=== PATIENT | male | born 1985 | race Caucasian/White ===

== ENCOUNTER 2016-11-15 11:16 | Emergency (ER) | payer OTHER ==
[~2016-11-15] VITALS: Ht 170.2 cm; Wt 75.0 kg
[2016-11-15 11:17] VITALS: BP 132/84; PULSE 81; RESP 16; O2SAT 99
[2016-11-15] MEDS ORDERED: ESCI20TA PO (11:21)
--- NOTE | 2016-11-15 11:25 | ED.REPORT ---
HPI-Extremity Problem Upper Date of Service Nov 15, 2016 ED Provider: Shakir Clements MD Pt is a 31 year old male with a hx of who presents to the ED s/p a wooden stake punctured his right 5th finger while at work. He reports he was walking over a pile of kiln sticks when he tripped, braced his fall with his hand, and obtained the puncture wound. Associated symptoms include mild decreased sensation in his hand. He denies fevers, chills, vomiting, lightheadedness, tingling, or any other symptoms. He does not know when his last tetanus shot was. Nursing Notes Stated Complaint: HUGE SLIVER IN RIGHT PINKY Chief Complaint: Extremity Trauma Nursing Notes Reviewed: Yes Allergies: Coded Allergies: No Known Allergies (Unverified , 11/15/16) Scheduled Amoxicillin/Clav K 875-125 mg (Augmentin 875-125 mg) 1 Each Tablet 1 TABLET PO BID Escitalopram Oxalate (Lexapro) 20 Mg Tablet 30 MG PO DAILY Scheduled PRN Hydrocodone-Acetaminophen 5-325 mg (Hydrocodone-Acetaminophen 5-325 mg) 1 Each Tablet 1 TABLET PO Q4H PRN PRN For Pain General Time Seen by MD: 11:24 Chief Complaint Finger injury right 5 Hx Obtained From: Patient Arrived By: Walk-in Onset Occurred: Just prior to arrival Symptom Duration: Since onset Caused by: Fall on ground Context: Occurred at: Workplace Location: : Finger right 5 Quality: Painful Severity: Current: Moderate Severity: Maximum: Moderate Pertinent Negative: Pt denies other symptoms Exacerbated by: Range of motion Immunizations: Unknown Past Medical History Past Medical History None reported Past Surgical History None reported Smoking History Unknown if Ever Smoker Ambulatory Status Independent Review of Systems Review of Systems Note: -tingling Constitutional: Denies: Chills, Fever Musculoskeletal: Reports: Extremity pain Neurologic: Reports: Numbness, Denies: Lightheaded, Syncope Complete sys rev & neg: except as marked. GI: Denies: Vomiting Physical Exam Initial Vital Signs Vital Signs (First) Date Time Temp Pulse Resp B/P Pulse Ox O2 Delivery O2 Flow Rate FiO2 11/15/16 11:17 36.8 81 16 132/84 99 Room Air Initial VS: Reviewed, Vital signs normal Head / Eyes: Atraumatic, Normocephalic Neck: Supple, Full range of motion Respiratory: Breath sounds normal, Clear to auscultation, No respiratory distress Cardiovascular: Regular rate & rhythm, Heart sounds normal, Intact distal pulses Skin: Warm, Dry Neurologic: Alert, Oriented, Nonfocal General/Constitutional: Awake, Alert, No acute distress Wrist / Hand: Neurologic intact, Vascular intact large splinter about 3mm in width, 2cm long entering lateral aspect of R pinky finger, traversing through subcutaneous tissue and exiting about the palmar aspect just distal to the PIP joint. sensation intact to distal aspect of R 5th finger good cap refill Interpretation & Diagnostics X-Ray Interpretation Xray Interpretation: IMPRESSION: No fracture. No osseous lesion. If symptoms and/or clinical suspicion for pathology persists, further assessment with repeat radiographs or advanced imaging (e.g. CT, MRI or bone scan) may be helpful for further assessment. Dictated by: Alethea Mcghee MD, PhD on 11/15/2016 at 11:57 Approved by: Alethea Mcghee MD, PhD on 11/15/2016 at 11:58 X-Ray Ordered: Hand right Interpretation / Wet Read by: Interpret - Radiologist Procedures Procedure Notes: Foreign body removal right fifth digit. Large splinter removed from lateral aspect of the middle phalanx. Digital block performed using 4 mL 1% lidocaine delivery with a 27-gauge needle. Good anesthesia is obtained in the hand is thoroughly cleansed with chlorhexidine and normal saline. Wood fragment is removed easily with straight mosquito hemostat with no indication of retained splinters. Penetrating wounds irrigated from both sides using an 18-gauge cannula and 50 mL normal saline. Minimal bleeding. Patient tolerated the procedure well. Dressed and back ointment and gauze. Re-Eval/Medical Decision Med Decision/Clinical Course In summary, the patient is a generally healthy 31-year-old male who presents with a large wooden sliver transversing the soft tissue of his left fifth finger. He is neurovascularly intact distal to the injury. He is not sure if he is up-to-date on his tetanus. Emergency Department the patient is afebrile, hemodynamically stable and in no apparent distress with examination as above. The patient was treated with 10 mg of oral oxycodone for pain and his tetanus status is updated. A digital block was performed as documented above and the sliver was removed. The wound was copiously irrigated and no remaining foreign bodies were detected. He had full flexion and extension of his finger without any evidence of neurovascular or ligamentous injury. Plain films prior to foreign body removal were obtained as below: Soft tissues: No suspicious soft tissue calcifications. Subtle slightly radiodense foreign body projects over the fifth PIP joint. No fracture. No osseous lesion. If symptoms and/or clinical suspicion for pathology persists, further assessment with repeat radiographs or advanced imaging (e.g. CT, MRI or bone scan) may be helpful for further assessment. The patient was placed on a course of Augmentin and will follow up closely with his primary care physician. He is to return immediately for any redness, swelling, fever or signs of infection. Prior to discharge follow-up and return precautions were reviewed in detail with the patient who verbalized understanding and agreement with the plan. The patient was discharged in stable condition. Re-Evaluation/Progress : Time of Eval: 12:20 Re-Evaluation/Progress Note: Discussed plan for wound care and f/u. Discussed plan for discharge. Patient understands and agrees with plan. All questions addressed at this time. Counseled Regarding: Diagnosis, Lab results, Need for follow-up, When/why to return to ED Discharge & Departure Impression: Primary Impression: Foreign body finger Additional Impressions: Puncture wound Posttraumatic pain Disposition: Home Discharge Condition All VS Reviewed: Yes Condition: Stable Additional Instructions: Thank you for seeking care at the emergency room. Our primary goal today in the ED was to evaluate you for any life-threatening conditions. Your evaluation was reassuring. We removed the foreign body that was present in your right hand. Soak your finger in warm water 2-3 times a day. Keep the area clean. Keep the wound dressed. You will be discharged with a prescription for Augmentin. Please take this for 5 days as prescribed to avoid infection. You may take Foster as prescribed for intense pain. You should follow-up with your primary doctor in the next week. You should return to the ED immediately if you develop fevers, vomiting, cough, shortness of breath, chest pain, lightheadedness, weakness, signs of infection including increasing redness, swelling, pus, increasing pain, or any other concerning signs or symptoms. Thank you for letting us partake in your care today. You have been prescribed a narcotic for pain relief. These drugs are usually combined with acetaminophen (Tylenol#3, Percocet, Darvocet, Anexsia, Vicodin) or aspirin (Empirin#3, Percodan, Synalogs-DC) for increased effect. Narcotics act on the central nervous system to reduce pain; they also impair mental alertness and physical abilities. We advise you not to drink alcohol, drive a car, or operate dangerous equipment when you are taking these drugs. You can lessen stomach irritation from your medicine by taking it with meals or a full glass of water. Common side effects of narcotics are: Nausea and vomiting, heartburn, constipation, dizziness, sleepiness, and mood changes. If you have bothersome side effects or symptoms of an allergic reaction (itching, hives, rash), stop taking your medicine and call your doctor or the emergency room right away. Please keep your narcotic medicine well out of the reach of children. Referrals: RITESH Cha Attestation Portions of this note were transcribed by Gissel Freitas. I, Dr. Clements personally performed the history, physical exam and medical decision-making; I reviewed and confirmed the accuracy of the information in the transcribed note. Signed by: Starla Arcso, 11/15/16 copies to: Shakir Dick MD Nov 15, 2016 11:25 GISSEL FREITAS Nov 15, 2016 11:31 Ben Riggs PA-C Nov 15, 2016 12:14
[2016-11-15] MEDS ORDERED: TdaP Vaccine 0.5 mL Inj IM ONE (11:30)
[2016-11-15] MEDS ORDERED: Lidocaine PF 2% 10 mL Inj NERVEBLOCK ONE (11:30)
[2016-11-15] MEDS ORDERED: HYDR-4003 PO (11:32)
[2016-11-15] MEDS ORDERED: AMOX-366 PO (11:32)
--- NOTE | 2016-11-15 11:59 | DRSVH ---
PROCEDURE: X-RAY RIGHT HAND, MINIMUM THREE VIEWS ([id number]) INDICATIONS: FB, pinky TECHNIQUE: 3 views of the hand(s) acquired. COMPARISON: None. FINDINGS: Bones: No fractures or dislocations. Carpal bones are normally aligned. No suspicious bony lesions . Soft tissues: No suspicious soft tissue calcifications. Subtle slightly radiodense foreign body proj ects over the fifth PIP joint. IMPRESSION: No fracture. No osseous lesion. If symptoms and/or clinical suspicion for pathology pers ists, further assessment with repeat radiographs or advanced imaging (e.g. CT, MRI or bone scan) may be helpful for further assessment. Dictated by: Alethea Mcghee MD, PhD on 11/15/2016 at 11:57 Approved by: Alethea Mcghee MD, PhD on 11/15/2016 at 11:58
[2016-11-15 12:38] VITALS: BP 117/83; PULSE 86; RESP 17; O2SAT 97
== END 2016-11-15 12:39 | disposition home or self-care (01) ==
LOC: SED 11:16
DX: S60.456A Superficial foreign body of right little finger, initial encounter (principal); S61.246A Puncture wound with foreign body of right little finger without damage to nail, initial encounter; W45.8XXA Other foreign body or object entering through skin, initial encounter; Y93.89 Activity, other specified; Y92.69 Other specified industrial and construction area as the place of occurrence of the external cause; Y99.0 Civilian activity done for income or pay; Z23 Encounter for immunization